=== PATIENT | male | born 1945 | race Caucasian/White ===

== ENCOUNTER → 2016-08-19 | Outpatient (CLI) | payer OTHER, MEDICARE ==
[~2016-08-19] MED LIST: AGG PO; ALBU1AER9 INH; FLUT1INH INH; LISI20TA PO; MOME100A INH; SIMV10TA2 PO; TRAV0.00 OPB; TRIM100T PO
--- NOTE | 2016-08-19 11:10 | DIAGNOSTIC IMAGING REPORT ---
ULTRASOUND OF THE CAROTID ARTERIES CLINICAL HISTORY: I63.9 Cerebral infarction, [id number] Cerebellar [id number] COMPARISON STUDY: 02-23 TECHNIQUE: Real-time, grayscale, and color Doppler sonography of the carotid arteries was performed. Imaging reviewed in the transverse and longitudinal planes. NASCET criteria was utilized for stenosis calcification. FINDINGS: There is mild echogenic shadowing atherosclerotic plaque present bilateral. The peak systolic velocity within the right internal carotid artery is 91 cm/sec. The systolic velocity ratio of right internal to common carotid artery is 1.2. The peak systolic velocity within the left internal carotid artery is 102 cm/sec. The systolic velocity ratio left internal to common carotid artery is 1.2. Antegrade flow is seen in the vertebral arteries. The external carotid arteries are patent. Blood pressure in the right arm measured 156 mm/Hg. Blood pressure in the left arm measured 154 mm/Hg. IMPRESSION: Bilateral atheromatous changes. No evidence of hemodynamically significant carotid stenosis. Electronically signed by: Solo Blair M.D. 08/19/2016 11:09 AM Dictated Date/Time: 08/19/2016 11:08 AM
== END | disposition home or self-care (01) ==
LOC: C.ULTR 10:31
PROVIDERS: ATTEND Nurse Practitioner
DX: G11.9 Hereditary ataxia, unspecified (principal); I63.9 Cerebral infarction, unspecified; R73.01 Impaired fasting glucose; I65.23 Occlusion and stenosis of bilateral carotid arteries

== ENCOUNTER → 2017-01-22 | Outpatient (CLI) | payer OTHER, MEDICARE ==
[2017-01-22 12:59] LABS: ALT/SGPT 34 U/L (12-78); BLOOD UREA NITROGEN 16 mg/dl (7-18); BUN/CREATININE RATIO 18.4 (10-20); CALCIUM 8.9 mg/dl (8.5-10.1); CARBON DIOXIDE 33 mmol/L (21-32); CHLORIDE 104 mmol/L (98-107); CHOLESTEROL 111 mg/dl (0-200); CREATININE 0.88 mg/dl (0.60-1.40); GLUCOSE 89 mg/dl (70-99); SODIUM 142 mmol/L (136-145)
[2017-01-22 13:04] LABS: ALB/GLOB RATIO 1.3 (0.9-2); ALKALINE PHOSPHATASE 74 U/L (45-117); AST/SGOT 21 U/L (15-37); CHOLESTEROL/HDL RATIO 1.6; HDL CHOLESTEROL 70 mg/dl; LDL CHOLESTEROL CALCULATED 34 mg/dl; TRIGLYCERIDES 37 mg/dl (0-150); VERY LOW DENSITY LIPOPROT CALC 7 mg/dl
== END | disposition home or self-care (01) ==
LOC: C.LABBFT 08:26
PROVIDERS: ATTEND Nurse Practitioner
DX: E78.00 Pure hypercholesterolemia, unspecified (principal); R97.20 Elevated prostate specific antigen [PSA]

== ENCOUNTER → 2017-01-26 | Outpatient (CLI) | payer OTHER, MEDICARE | END | disposition home or self-care (01) | LOC: C.LABSPEC 13:13 | PROVIDERS: ATTEND Nurse Practitioner | DX: Z12.11 Encounter for screening for malignant neoplasm of colon (principal) ==